=== PATIENT | male | born 1935 | race Two or more races ===

== ENCOUNTER 2018-05-16 17:42 | Inpatient (IN) | payer MEDICARE ==
[~2018-05-16] VITALS: Ht 177.8 cm; Wt 98.2 kg
--- NOTE | 2018-05-16 17:44 | NUR ---
ED Nurse Note: PT BIBA due to generalized weakness x 4 hours. Pt has a hx of COPD and triple A. A + O x4. Able to follow verbal commands. Skin warm to touch. Pt came into the ER w/ suprapubic catheter x 4 years. Pt's states that she noticed pt has not been urinating as much and that there has been purulent drainage coming from the suprapubic site.
[2018-05-16 17:49] VITALS: BP 129/60
[2018-05-16] MEDS ORDERED: PANTOPRAZOLE SO40 MG ORAL (17:50)
[2018-05-16] MEDS ORDERED: TRAMADOL HCL50 MG ORAL (17:50)
[2018-05-16] MEDS ORDERED: FOSAMAX70 MG ORAL (17:50)
[2018-05-16] MEDS ORDERED: MECLIZINE HCL12.5 MG ORAL (17:50)
[2018-05-16] MEDS ORDERED: OMEGA-3 + VITA200 ML PO (17:50)
[2018-05-16] MEDS ORDERED: ATORVASTATIN CA20 MG ORAL (17:50)
[2018-05-16] MEDS ORDERED: GABAPENTIN100 MG ORAL (17:50)
[2018-05-16] MEDS ORDERED: PROSCAR5 MG ORAL (17:50)
[2018-05-16] MEDS ORDERED: ASPIRIN-LOW81 MG ORAL (17:50)
[2018-05-16] MEDS ORDERED: FUROSEMIDE40 MG ORAL (17:50)
[2018-05-16] MEDS ORDERED: CALCIUM CITRAT1 EAC6 PO (17:50)
[2018-05-16] MEDS ORDERED: BENAZEPRIL HCL10 MG ORAL (17:50)
[2018-05-16] MEDS ORDERED: POLYETHYLENE GL17 GM ORAL (17:50)
[2018-05-16] MEDS ORDERED: VOLTAREN100 G1 TP (17:50)
--- NOTE | 2018-05-16 18:17 | NUR ---
ED Nurse Note: Pt went down to CT.
--- NOTE | 2018-05-16 18:24 | NUR ---
ED Nurse Note: Notified Dr. Tanner that pt has a suprapubic catheter. stated it is okay to take urine from that catheter instead of inserting a straight cath.
--- NOTE | 2018-05-16 18:27 | NUR ---
ED Nurse Note: Pt came back from CT
--- NOTE | 2018-05-16 18:32 | NUR ---
ED Nurse Note: Urine and flu swab has been collected and sent to lab. Awaiting results.
[2018-05-16 18:50] LABS: HEMATOCRIT 43.1 % (42.0-52.0); HEMOGLOBIN 14.8 G/DL (14.2-18.0); MEAN CORPUSCULAR VOLUME 92 FL (80-99); PLATELET COUNT 240 K/UL (150-450); RED BLOOD COUNT 4.71 M/UL (4.70-6.10); RED CELL DISTRIBUTION WIDTH 11.8 % (11.6-14.8); WHITE BLOOD COUNT 21.2 K/UL (4.8-10.8)
[2018-05-16 19:00] LABS: ANION GAP 12 mmol/L (5-15); BLOOD UREA NITROGEN 19 mg/dL (7-18); CARBON DIOXIDE 25 MMOL/L (21-32); CHLORIDE 100 MMOL/L (98-107); CREATININE 1.3 MG/DL (0.55-1.30); POTASSIUM 3.9 MMOL/L (3.5-5.1); SODIUM 137 MMOL/L (136-145)
[2018-05-16 19:13] LABS: APPEARANCE,URINE CLOUDY; BILIRUBIN, URINE NEGATIVE (NEGATIVE); COLOR,URINE PALE YELLOW; GLUCOSE, URINE (UA) NEGATIVE (NEGATIVE); KETONES,URINE NEGATIVE (NEGATIVE); LEUKOCYTE ESTERASE ,URINE 3+ (NEGATIVE); NITRITE,URINE NEGATIVE (NEGATIVE); PH,URINE 5 (4.5-8.0); PROTEIN,URINE 2+ (NEGATIVE); UROBILINOGEN,URINE NORMAL MG/DL (0.0-1.0)
--- NOTE | 2018-05-16 19:18 | NUR ---
HAND-OFF: Report given to LORA Sanchez.
[2018-05-16 19:21] LABS: ALANINE AMINOTRANSFERASE 21 U/L (12-78); ALBUMIN 4.3 G/DL (3.4-5.0); ALBUMIN/GLOBULIN RATIO 1.7 (1.0-2.7); ALKALINE PHOSPHATASE 99 U/L (46-116); ASPARTATE AMINO TRANSFERASE 11 U/L (15-37); BILIRUBIN,TOTAL 1.4 MG/DL (0.2-1.0); CREATINE KINASE 21 U/L (26-308)
[2018-05-16 19:25] LABS: BILIRUBIN,DIRECT 0.3 MG/DL (0.0-0.3)
--- NOTE | 2018-05-16 20:17 | NUR ---
ED Nurse Note: Received report. Pt in bed with family at bedside. telemetry nurse in place. Awaiting tele bed assignment for transfer. Will continue to monitor.
[2018-05-16 20:35] VITALS: BP 119/73
[2018-05-16 23:00] VITALS: BP 129/77
--- NOTE | 2018-05-16 23:00 | NUR ---
NURSE NOTES: Pt came to 2E unit via trudy w/o incident. Received report fromYolie Panchal, ED RN. Pt is sleeping in the bed w/o distress in RA Safety measures are applied with bed alarm on, bed in lowest position, and breaks are engaged. is at the bedside. Belonging checked and conveyor monitor is applied. Pt came with suprapubic cath, patent and draining. Pt is on abdomen binder. Skin tear with flap noted on L. heel, CN made aware and picture will be uploaded. Dr. serrano called for admission orders. Will carry out the orders. , Addendum: 05/17/18 at 0158 by DEVIN GIRON RN Dr. Serrano ordered 1/2 NS 100ml/H, NPO, Heparin 5000 unit sq q12HR, Levaquin 500mg, AC Insulin in sensitive scale per protocol, Full code status, everything else will be ordered in the morning per Dr. Serrano. Pharmacy adjusted Levaquin to 750mg Q48hr according to lab result. Currently, pt is sleeping w/o distress. Will follow plans of care.
--- NOTE | 2018-05-16 23:22 | Emergency Room Report ---
History of Present Illness General Chief Complaint: Generalized Weakness Source: Patient, Family Member Present Illness HPI 82-year-old male presents ED for evaluation. Brought in by daughter. Has been increasingly lethargic since this morning. Patient is unable to provide any additional history at this time. No reported chest pain or shortness of breath no reported fevers or chills. No slurred speech or facial droop. No other aggravating relieving factors. No other associated symptoms Allergies: Coded Allergies: PENICILLINS (Verified Allergy, Unknown, 05/16/18) Patient History Past Medical History: HTN, COPD, GERD Past Surgical History: none Pertinent Family History: none Social History: Denies: smoking, alcohol use, drug use Immunizations: UTD Reviewed Nursing Documentation: PMH: Agreed; PSxH: Agreed Nursing Documentation-PMH Past Medical History: No History, Except For Hx Cardiac Problems: Yes - AAA, High scholesterol Hx Hypertension: Yes Hx COPD: Yes Hx Gastrointestinal Problems: Yes - GERD, Chronic Constipation Review of Systems All Other Systems: limited Physical Exam Vital Signs Date Time Temp Pulse Resp B/P (MAP) Pulse Ox O2 Delivery O2 Flow Rate FiO2 05/16/18 17:34 98.2 94 18 114/65 100 Room Air 05/16/18 17:49 96 Sp02 EP Interpretation: reviewed, normal General Appearance: lethargic Head: normocephalic Eyes: bilateral eye normal inspection, bilateral eye PERRL ENT: normal ENT inspection Neck: normal inspection Respiratory: chest non-tender, lungs clear, normal breath sounds, speaking full sentences Cardiovascular #1: regular rate, rhythm, no edema Gastrointestinal: normal bowel sounds, non tender, soft, non-distended, no guarding, no rebound Rectal: deferred Genitourinary: no CVA tenderness Musculoskeletal: normal inspection Neurologic: other - lethargic Psychiatric: other - lethargic Skin: normal inspection Lymphatic: normal inspection Medical Decision Making Diagnostic Impression: Primary Impression: Episode of generalized weakness Additional Impressions: Sepsis Qualified Codes: A41.9 - Sepsis, unspecified organism UTI (urinary tract infection) Qualified Codes: N39.0 - Urinary tract infection, site not specified ER Course Hospital Course 82-year-old male presenting to ED with generalized weakness, lethargy Differential diagnoses include: Pneumonia, UTI, sepsis, dehydration, AL/ unstable angina Clinical course Patient placed on stretcher. On cardiac rehab nurse with stable vitals are ED course. After initial history and physical, I ordered labs, IV fluids, EKG, chest x-ray, blood cultures, UA, CT. Labs - electrolytes ok, marked leukocytosis, troponins negative, lactate > 3, UA grossly positive for UTI CXR - haziness in lower lung dumont CT head - no acute process EKG - some PVCS noted, no acute ischemic changes interpreted by me Abx given. Given 30 mL per KG fluid bolus. Vital stable. Case discussed with Dr Arredondo and they agreed to admit patient to their service for further care and support I feel this is a highly complex case requiring extensive working including EKG/ Rhythm strip, Xray/CT/US, Blood/urine lab work, repeat exams while in ED, and administration of strong opiates/narcotics for pain control, admission to hospital or close patient follow up. Diagnosis - UTI, sepsis, generalized weakness Patient admitted to telemetry in serious condition Labs Test 05/16/18 18:00 05/16/18 18:40 05/16/18 20:35 White Blood Count 21.2 K/UL (4.8-10.8) Red Blood Count 4.71 M/UL (4.70-6.10) Hemoglobin 14.8 G/DL (14.2-18.0) Hematocrit 43.1 % (42.0-52.0) Mean Corpuscular Volume 92 FL (80-99) Mean Corpuscular Hemoglobin 31.4 PG (27.0-31.0) Mean Corpuscular Hemoglobin Concent 34.3 G/DL (32.0-36.0) Red Cell Distribution Width 11.8 % (11.6-14.8) Platelet Count 240 K/UL (150-450) Mean Platelet Volume 6.1 FL (6.5-10.1) Neutrophils (%) (Auto) % (45.0-75.0) Lymphocytes (%) (Auto) % (20.0-45.0) Monocytes (%) (Auto) % (1.0-10.0) Eosinophils (%) (Auto) % (0.0-3.0) Basophils (%) (Auto) % (0.0-2.0) Differential Total Cells Counted 100 Neutrophils % (Manual) 80 % (45-75) Lymphocytes % (Manual) 7 % (20-45) Monocytes % (Manual) 5 % (1-10) Eosinophils % (Manual) 0 % (0-3) Basophils % (Manual) 0 % (0-2) Band Neutrophils 8 % (0-8) Platelet Estimate Adequate Platelet Morphology Normal Red Blood Cell Morphology Normal Sodium Level 137 MMOL/L (136-145) Potassium Level 3.9 MMOL/L (3.5-5.1) Chloride Level 100 MMOL/L (98-107) Carbon Dioxide Level 25 MMOL/L (21-32) Anion Gap 12 mmol/L (5-15) Blood Urea Nitrogen 19 mg/dL (7-18) Creatinine 1.3 MG/DL (0.55-1.30) Estimat Glomerular Filtration Rate mL/min (>60) Glucose Level 216 MG/DL (74-106) Lactic Acid Level 3.70 mmol/L (0.4-2.0) 2.60 mmol/L (0.66-2.22) Calcium Level 10.0 MG/DL (8.5-10.1) Total Bilirubin 1.4 MG/DL (0.2-1.0) Direct Bilirubin 0.3 MG/DL (0.0-0.3) Aspartate Amino Transf (AST/SGOT) 11 U/L (15-37) Alanine Aminotransferase (ALT/SGPT) 21 U/L (12-78) Alkaline Phosphatase 99 U/L (46-116) Total Creatine Kinase 21 U/L (26-308) Creatine Kinase MB 1.0 NG/ML (0.0-3.6) Creatine Kinase MB Relative Index 4.7 Troponin I 0.031 ng/mL (0.000-0.056) Pro-B-Type Natriuretic Peptide 339 pg/mL (0-125) Total Protein 6.8 G/DL (6.4-8.2) Albumin 4.3 G/DL (3.4-5.0) Globulin 2.5 g/dL Albumin/Globulin Ratio 1.7 (1.0-2.7) Urine Color Pale yellow Urine Appearance Cloudy Urine pH 5 (4.5-8.0) Urine Specific Easley 1.010 (1.005-1.035) Urine Protein 2+ (NEGATIVE) Urine Glucose (UA) Negative (NEGATIVE) Urine Ketones Negative (NEGATIVE) Urine Blood 5+ (NEGATIVE) Urine Nitrite Negative (NEGATIVE) Urine Bilirubin Negative (NEGATIVE) Urine Urobilinogen Normal MG/DL (0.0-1.0) Urine Leukocyte Esterase 3+ (NEGATIVE) Urine RBC 5-10 /HPF (0 - 0) Urine WBC Tntc /HPF (0 - 0) Urine Squamous Epithelial Cells None /LPF (NONE/OCC) Urine Amorphous Sediment Moderate /LPF (NONE) Urine Bacteria Many /HPF (NONE) Urine Yeast Moderate /HPF (NONE) EKG Diagnostic Results Rate: normal Rhythm: NSR ST Segments: no acute changes ASA given to the pt in ED: No Rhythm Strip Diag. Results EP Interpretation: yes Rhythm: NSR, no ectopy, other - PVCs Chest X-Ray Diagnostic Results Chest X-Ray Diagnostic Results : Chest X-Ray Ordered: Yes # of Views/Limited/Complete: 1 View Indication: Other EP Interpretation: Yes Interpretation: no pneumothorax, other - haziness lower lung dumont Impression: Other - ?PNA Electronically Signed by: Electronically signed by Manan Tanner MD Last Vital Signs Date Time Temp Pulse Resp B/P (MAP) Pulse Ox O2 Delivery O2 Flow Rate FiO2 05/16/18 22:24 98.0 78 18 123/63 96 Room Air 05/16/18 17:49 96 Status: improved Disposition: ADMITTED INPATIENT Condition: Serious Referrals: [facility],REFERR[facility] (PCP) Manan Tanner MD May 16, 2018 23:22
[2018-05-17 04:00] VITALS: BP 140/76
[2018-05-17] MEDS: NovoLOG Insulin Flexpen SUBQ SCH ×4 (06:30→21:43)
--- NOTE | 2018-05-17 07:30 | NUR ---
NURSE NOTES: AND-OFF: Report given to LORA Sánchez. Stable condition.
--- NOTE | 2018-05-17 07:42 | NUR ---
NURSE NOTES: Received bedside report from Marti PAULINO. Pt. in bed, asleep but arousable. No sign of distress. No grimacing noted. IV at left AC #20g. in placed running 1/2 NS at 100cc/hr. Supra pubic in placed patent/intact draining yellow colored urine. Bed in low position, locked. Call light within reach. Will cont. to monitor.
[2018-05-17 08:00] VITALS: BP 127/66
--- NOTE | 2018-05-17 08:45 | Diagnostic Imaging Report ---
Indication: Altered mental status Technique: spiral acquisitions obtained through the brain. Angled axial and coronal 5 x 5 mm slices were reconstructed. No IV contrast utilized. Radiation dose was minimized using automated exposure control Total dose length product 1513.27 mGycm. CTDIvol(s) 70.38 mGy Comparison: none FINDINGS: No acute hemorrhage or edema. No mass effect or midline shift. There is age-related enlargement of the ventricles and extra axial CSF spaces. There is periventricular deep white matter ischemic change. Normal kendrick-white differentiation. Visualized orbits are unremarkable. Visualized sinuses are unremarkable. Intact calvarium. IMPRESSION: Chronic and age-related changes. Negative for acute intracranial bleed or mass effect This agrees with the preliminary interpretation provided overnight by Dr. Paulino The CT scanner at [facility] is accredited by the [employer] and the scans are performed using protocols designed to limit radiation exposure to as low as reasonably achievable to attain images of sufficient resolution adequate for diagnostic evaluation
--- NOTE | 2018-05-17 08:46 | Diagnostic Imaging Report ---
Indication: Chest pain Technique: One view of the chest Comparison: none Findings: Suboptimal inspiration. There is some atelectasis at the right lung base. The lungs and pleural spaces are otherwise clear. Heart is upper limits of normal in size. The aorta is tortuous and ectatic Impression: No acute process
[2018-05-17] MEDS: Vitamin A&D Oint 2oz Tube TOPIC SCH ×2 (09:00→21:42)
[2018-05-17] MEDS: Heparin 5000 units/ml inj SUBQ SCH ×2 (09:07→21:43)
--- NOTE | 2018-05-17 10:53 | NUR ---
P.T Note: P.T evaluation completed. Tx initiated. Please refer to P.T evaluation for current functional status Pt is alert, oriented to self, place, person and situation. Pt is pleasant and cooperative. No c/o major pain nor discomfort. Pt is limited by generalized weakness and deconditioned state. Pt currently require MIN A x 1 to roll/turn , scoot and MOD A X 1 for supine to sit. Pt able to sit unsupported. Pt was able to initiate sit to stand with MAX A X 1 however unable to fully stand. Pt. should benefit Addendum: 05/17/18 at 1103 by KRISTA PINTO PT Continuation of P.T Note: P.T evaluation completed. Tx initiated. Please refer to P.T evaluation for current functional status Pt is alert, oriented to self, place, person and situation. Pt is pleasant and cooperative. No c/o major pain nor discomfort. Pt is limited by generalized weakness and deconditioned state. Pt currently require MIN A x 1 to roll/turn , scoot and MOD A X 1 for supine to sit. Pt able to sit unsupported. Pt was able to initiate sit to stand with MAX A X 1 however unable to fully stand. Pt. should benefit from skilled P.T service to increase his strength, endurance and balance to increase safety and functional mobility independence. Recommend home P.T at [place] to maximize mobility independence and safety at home.
--- NOTE | 2018-05-17 11:42 | NUR ---
ST NOTE: BEDSIDE SWALLOW EVAL RECEIVED BEDSIDE SWALLOW EVAL ORDER CHART REVIEWED PRIOR THE EVALUATION. PT IS A 83-YEAR-OLD MALE WHO WAS ADMITTED DUE TO WEAKNESS AND AMS. DYSPHAGIA RISK FACTORS: AMS, WEAKNESS, COPD, GERD, HTN, DIALYSIS. PER CXR: SOME ATELECTASIS AT THE R LUNG BASE, OTHERWISE NO ACUTE PROCESS PER CT HEAD: NEGATIVE FOR ACUTE INTRACRANIAL BLEED OR MASS EFFECT. PLOF: PT LIVES AT HOME WITH . CURRENT STATUS: PT SEEN AT BEDSIDE IN AM. ALERT, COOPERATIVE, FOLLOWS SIMPLE DIRECTIONS, ORIENTED X 3.(KNOW THE YEAR). GIVEN PO TRIALS: THIN(CUP-SELF), PUREE(TSP) AND CRACKER. INITIAL IMPRESSION: PT HAS UPPER DENTURE, MISSING SOME MOLAR TEETH. GOOD MASTICATION TIME, MIN INCREASED ORAL TRANSIT TIME AND OROPHARYNGEAL TRANSIT TIME, FUNCTIONAL LARYNGEAL ELEVATION, NO OVERT S/S OF ASPIRATION. OVERALL, PT'S SWALLOWING SEEMS FUNCTIONAL. RECOMMENDATIONS: 1. DUE TO PT'S OVERALL WEAKNESS, SLOWLY INITIATE MECH SOFT(CHOPPED) WITH THIN LIQUIDS. 2. ASPIRATION/REFLUX PRECAUTIONS WITH SUPERVISION. 3. SKILLED ST SERVICE TO FOLLOW UP 1-2 TIMES. 4. ADVANCED DIET TOLERATED. D/W PT, RN, JANN POSTED ASPIRATION/REFLUX PRECAUTIONS SIGN.
[2018-05-17 12:00] VITALS: BP 138/71
--- NOTE | 2018-05-17 13:31 | NUR ---
*-* INSURANCE *-* CLINICALS HAVE BEEN FAXED TO: [email or web address] P:[phone] F:[phone]
--- NOTE | 2018-05-17 15:45 | History and Physical Report ---
DATE OF ADMISSION: 05/16/2018 CHIEF COMPLAINT: Weakness. HISTORY OF PRESENT ILLNESS: This 83-year-old man was brought in by the daughter from home because of lethargy since yesterday morning. Late last night, he was evaluated in the emergency department. He had no history of fever or chills, but now he is more alert and reports that he had some dysuria. He was evaluated and found to have urinary tract infection and sepsis. White count was elevated. His blood pressure was stable. He was admitted to medical floor for treatment. Fluids and antibiotics were given after cultures were obtained. PAST MEDICAL HISTORY: Includes hypertension, COPD, acid reflux, high cholesterol, abdominal aneurysm, constipation. MEDICATIONS: At home include baby aspirin, Lipitor, benazepril, vitamins, Voltaren gel, Fosamax, Lasix, gabapentin, meclizine, pantoprazole, and tramadol. ALLERGIES: Penicillin. REVIEW OF SYSTEMS: Otherwise unremarkable. SOCIAL HISTORY: He does not drink or smoke. PHYSICAL EXAMINATION: GENERAL: Stable. He is alert and responds appropriately. Now, he is obese. HEENT: Head is normocephalic. NECK: No jugular venous distention. CHEST: Clear. CARDIAC: Rhythm is regular. ABDOMEN: Soft and nontender. There is no liver or spleen enlargement. BACK: Shows left CVA tenderness. EXTREMITIES: Have no clubbing, cyanosis, or edema. GENITOURINARY: Thapa catheter is in place. LABORATORY AND DIAGNOSTIC DATA: Chest x-ray is negative. Urine shows many white cells. Lactate is elevated. CT head negative. Troponins negative. White count is 21,200. BUN 19, creatinine 1.3, blood sugar is elevated at 216. IMPRESSION: 1. Sepsis. 2. Urinary tract infection with probable left pyelonephritis. 3. Hypertension. 4. Hyperglycemia with obesity, possible type 2 diabetes. 5. Hyperlipidemia. 6. Chronic obstructive pulmonary disease. PLAN: The patient will be treated with antibiotics and fluids. We will have physical therapy evaluation. An ultrasound of the kidneys was ordered. We will monitor blood sugar and check A1c. Nayan Arredondo M.D. DR: Breanne JOB#: [id number] CC: Nayan Arredondo M.D.; Fax#: [phone]
[2018-05-17 16:00] VITALS: BP 127/66
--- NOTE | 2018-05-17 18:41 | NUR ---
CASE MANAGEMENT: REVIEW 83/M BIBA FROM HOME CC: GENERALIZED WEAKNESS SI: AMS T 98.4 HR 59 RR 20 BP 127/66 SAT 97% ROOM AIR WBC 21.2 GLUCOSE 216 LACTIC ACID 3.70 IS: NS IVF BOLUS X1 LEVOFLOXACIN IV X1 PATIENT ADMITTED TO TELEMETRY UNIT 05/16/2018 DCP: PATIENT IS FROM HOME
[2018-05-17 20:00] VITALS: BP 139/71
--- NOTE | 2018-05-17 20:14 | NUR ---
HAND-OFF: Report given to Beverly PAULINO. Pt. remain stable.
--- NOTE | 2018-05-17 20:19 | NUR ---
NURSE NOTES: Received report from LORA Sánchez. Patient is awake lying semi-gallegos's; resting comfortably. No signs of acute distress noted; denies pain at this time. and son at bedside. AOx3; able to make needs known. Checked IV site, lines, and IV rate; patent and running. No erythema, bleeding, or infiltration noted. Suprapubic catheter draining well to gravity. Bed at lowest position, brakes on, siderails up x3. Call light within reach. Will continue to monitor.
[2018-05-18] VITALS: BP 153/92
[2018-05-18 04:00] VITALS: BP 153/82
[2018-05-18] MEDS: NovoLOG Insulin Flexpen SUBQ SCH ×4 (07:08→20:43)
--- NOTE | 2018-05-18 07:30 | NUR ---
HAND-OFF: Report given to LORA Sánchez. Patient is awake lying semi-gallegos's; resting comfortably. In stable condition.
--- NOTE | 2018-05-18 07:35 | NUR ---
NURSE NOTES: Received bedside report from Beverly PAULINO. Pt. in bed, awake, a/o x 3-4. No sign of distress. Denies pain at present. IV at left AC #20g. in placed running 1/2 NS at 100cc/hr. Supra pubic in placed patent/intact draining yellow colored urine. Pleasant and cooperative. Bed in low position, locked. Call light within reach. Will cont. to monitor.
[2018-05-18 08:00] VITALS: BP 142/64
[2018-05-18 08:26] LABS: BASOPHILS % (AUTO) 0.7 % (0.0-2.0); EOSINOPHILS % (AUTO) 2.8 % (0.0-3.0); HEMATOCRIT 39.9 % (42.0-52.0); LYMPHOCYTES % (AUTO) 17.3 % (20.0-45.0); MEAN CORPUSCULAR VOLUME 90 FL (80-99); MONOCYTES % (AUTO) 5.4 % (1.0-10.0); NEUTROPHILS % (AUTO) 73.8 % (45.0-75.0); PLATELET COUNT 186 K/UL (150-450); RED BLOOD COUNT 4.42 M/UL (4.70-6.10); RED CELL DISTRIBUTION WIDTH 11.8 % (11.6-14.8)
[2018-05-18 09:13] LABS: ALANINE AMINOTRANSFERASE 19 U/L (12-78); ALBUMIN 3.6 G/DL (3.4-5.0); ALBUMIN/GLOBULIN RATIO 1.4 (1.0-2.7); ALKALINE PHOSPHATASE 90 U/L (46-116); ANION GAP 12 mmol/L (5-15); ASPARTATE AMINO TRANSFERASE 14 U/L (15-37); BILIRUBIN,TOTAL 1.4 MG/DL (0.2-1.0); BLOOD UREA NITROGEN 14 mg/dL (7-18); CARBON DIOXIDE 25 MMOL/L (21-32); CHLORIDE 107 MMOL/L (98-107); CREATININE 1.1 MG/DL (0.55-1.30); POTASSIUM 3.8 MMOL/L (3.5-5.1); SODIUM 144 MMOL/L (136-145)
[2018-05-18] MEDS: Vitamin A&D Oint 2oz Tube TOPIC SCH ×2 (09:16→20:32)
[2018-05-18] MEDS: Heparin 5000 units/ml inj SUBQ SCH ×2 (09:18→20:33)
[2018-05-18 09:25] LABS: BILIRUBIN,DIRECT 0.3 MG/DL (0.0-0.3)
--- NOTE | 2018-05-18 10:53 | General Progress Note ---
Assessment/Plan Assessment/Plan 1. Sepsis. 2. Urinary tract infection with probable left pyelonephritis. 3. Hypertension. 4. Hyperglycemia with obesity, possible type 2 diabetes. 5. Hyperlipidemia. 6. Chronic obstructive pulmonary disease. No flank pain today. Ultrasound is pending. White count is down to normal and no fever Very weak with physical therapy Possible discharge home tomorrow with home health Subjective Constitutional: Reports: no symptoms Allergies: Coded Allergies: PENICILLINS (Verified Allergy, Unknown, 05/16/18) Objective Last 24 Hour Vital Signs Date Time Temp Pulse Resp B/P (MAP) Pulse Ox O2 Delivery O2 Flow Rate FiO2 05/18/18 08:31 Room Air 05/18/18 08:00 98.2 65 20 142/64 (90) 96 05/18/18 07:52 64 05/18/18 04:00 60 05/18/18 04:00 97.9 69 20 153/82 (105) 98 05/18/18 00:00 97.5 60 20 153/92 (112) 95 05/18/18 00:00 58 05/17/18 21:00 Room Air 05/17/18 20:00 64 05/17/18 20:00 98.1 64 20 139/71 (93) 95 05/17/18 16:01 62 05/17/18 16:00 98.4 66 20 127/66 (86) 97 05/17/18 12:00 98.1 60 20 138/71 (93) 96 05/17/18 11:36 59 Intake and Output 05/17/18 05/18/18 19:00 07:00 Intake Total 580 ml 1130 ml Output Total 1150 ml 2000 ml Balance -570 ml -870 ml Intake Oral 480 ml IV Total 100 ml 1130 ml Output Urine Total 1150 ml 2000 ml # Bowel Movements 2 Laboratory Tests 05/18/18 07:55: White Blood Count 9.0, Red Blood Count 4.42L, Hemoglobin 14.0L, Hematocrit 39.9L , Mean Corpuscular Volume 90, Mean Corpuscular Hemoglobin 31.6H, Mean Corpuscular Hemoglobin Concent 35.0, Red Cell Distribution Width 11.8, Platelet Count 186, Mean Platelet Volume 6.3L, Neutrophils (%) (Auto) 73.8, Lymphocytes ( %) (Auto) 17.3L, Monocytes (%) (Auto) 5.4, Eosinophils (%) (Auto) 2.8, Basophils (%) (Auto) 0.7, Sodium Level 144, Potassium Level 3.8, Chloride Level 107, Carbon Dioxide Level 25, Anion Gap 12, Blood Urea Nitrogen 14, Creatinine 1.1, Estimat Glomerular Filtration Rate , Glucose Level 139H, Hemoglobin A1c 6.4H, Calcium Level 9.0, Total Bilirubin 1.4H, Direct Bilirubin 0.3, Aspartate Amino Transf (AST/SGOT) 14L, Alanine Aminotransferase (ALT/SGPT) 19, Alkaline Phosphatase 90, Total Protein 6.2L, Albumin 3.6, Globulin 2.6, Albumin/Globulin Ratio 1.4 Height (Feet): 5 Height (Inches): 10.00 Weight (Pounds): 216 General Appearance: no apparent distress Cardiovascular: normal rate Respiratory/Chest: lungs clear Abdomen: non tender Edema: no edema noted Generalized Nayan Arredondo MD May 18, 2018 10:53
--- NOTE | 2018-05-18 11:51 | Diagnostic Imaging Report ---
Indication:Elevated Bun and Creatinine. Technique: Grayscale and duplex Doppler imaging of the kidneys performed. Comparison: None Findings: There is limited visualization of the kidneys. Kidney may be slightly echogenic. There are multiple cysts of varying size within both kidneys. The kidneys measure about 13 cm in length bilaterally. Bladder is unremarkable. IMPRESSION: Multiple renal cysts. Suspected medical renal disease. Limited study
[2018-05-18 12:00] VITALS: BP 158/79
--- NOTE | 2018-05-18 13:54 | NUR ---
*-* INSURANCE *-* H&P HAVE BEEN FAXED TO: [facility] [employer] P:[phone] F:[phone]
[2018-05-18 16:00] VITALS: BP 141/74
--- NOTE | 2018-05-18 18:42 | Cardiology Report ---
APPROVED REPORT EKG Measurement Heart [id number] SD 180P0 [id number] Sinus rhythm with premature supraventricular complexes Left axis deviation Left bundle branch block Abnormal ECG
[2018-05-18 20:00] VITALS: BP_SYST 146; BP_SYST 155; BP_DIAS 63; BP_DIAS 85
--- NOTE | 2018-05-18 20:01 | NUR ---
HAND-OFF: Report given to Emilio PAULINO. Pt. remain stable.
--- NOTE | 2018-05-18 20:02 | NUR ---
NURSE NOTES: Received report from LORA Sánchez. Pt is awake and resting in bed. In no acute distress. Bed in lowest position, call light within reach. Family is at bedside. Will continue plan of care.
[2018-05-19] VITALS: BP 139/67
[2018-05-19 04:00] VITALS: BP 156/84
[2018-05-19] MEDS: NovoLOG Insulin Flexpen SUBQ SCH ×4 (06:30→21:05)
[2018-05-19 07:13] LABS: BASOPHILS % (AUTO) 0.9 % (0.0-2.0); EOSINOPHILS % (AUTO) 3.1 % (0.0-3.0); HEMATOCRIT 38.1 % (42.0-52.0); HEMOGLOBIN 13.2 G/DL (14.2-18.0); LYMPHOCYTES % (AUTO) 23.1 % (20.0-45.0); MEAN CORPUSCULAR VOLUME 90 FL (80-99); PLATELET COUNT 175 K/UL (150-450); RED BLOOD COUNT 4.24 M/UL (4.70-6.10); RED CELL DISTRIBUTION WIDTH 11.4 % (11.6-14.8); WHITE BLOOD COUNT 6.7 K/UL (4.8-10.8)
--- NOTE | 2018-05-19 07:15 | NUR ---
HAND-OFF: Report given to LORA Dorantes.
--- NOTE | 2018-05-19 07:39 | NUR ---
Received report from Emilio PAULINO. Pt. in bed, awake, a/o x 3. No sign of distress. Denies pain at present. IV at left AC #20g is intact and patent running 1/2 NS at 100cc/hr. Supra pubic in placed patent/intact draining yellow colored urine by gravity. Bed in low position, locked. Call light and frequent used objects are within reach. Will cont. to monitor.
[2018-05-19 07:50] LABS: ALANINE AMINOTRANSFERASE 22 U/L (12-78); ALBUMIN 3.4 G/DL (3.4-5.0); ALBUMIN/GLOBULIN RATIO 1.4 (1.0-2.7); ALKALINE PHOSPHATASE 80 U/L (46-116); ANION GAP 8 mmol/L (5-15); ASPARTATE AMINO TRANSFERASE 17 U/L (15-37); BILIRUBIN,TOTAL 1.2 MG/DL (0.2-1.0); BLOOD UREA NITROGEN 17 mg/dL (7-18); CARBON DIOXIDE 27 MMOL/L (21-32); CHLORIDE 108 MMOL/L (98-107); CREATININE 1.1 MG/DL (0.55-1.30); POTASSIUM 3.9 MMOL/L (3.5-5.1); SODIUM 143 MMOL/L (136-145)
[2018-05-19 07:51] LABS: BILIRUBIN,DIRECT 0.3 MG/DL (0.0-0.3)
[2018-05-19] MEDS: Vitamin A&D Oint 2oz Tube TOPIC SCH ×2 (08:04→21:03)
[2018-05-19] MEDS: Heparin 5000 units/ml inj SUBQ SCH ×2 (08:06→21:07)
[2018-05-19 09:00] VITALS: BP 170/84
--- NOTE | 2018-05-19 10:44 | NUR ---
PATIENT BP 170/85. DR. MORSE CONSULTED BY DR.SOFFER DR. MORSE NOTIFIED AND WAITING FOR CALL BACK
[2018-05-19 12:00] VITALS: BP 151/77
[2018-05-19] MEDS ORDERED: HydrALAZINE 10mg Tab ORAL PRN (13:00)
[2018-05-19] MEDS ORDERED: Lisinopril 20mg tab ORAL SCH (14:00)
--- NOTE | 2018-05-19 14:14 | NUR ---
LISINOPRIL 40 MG ADMIN ORDERED BY WILL CONTINUE TO MONITOR
--- NOTE | 2018-05-19 14:33 | General Progress Note ---
Assessment/Plan Assessment/Plan 1. Sepsis. 2. Urinary tract infection with probable left pyelonephritis. 3. Hypertension. 4. Hyperglycemia with obesity, possible type 2 diabetes. 5. Hyperlipidemia. 6. Chronic obstructive pulmonary disease. Renal ultrasound negative Blood pressure is elevated Cardiology called and medication ordered Discontinue IV fluids Possible discharge home tomorrow with home health Discussed with at bedside and son by phone Subjective Constitutional: Reports: no symptoms Allergies: Coded Allergies: PENICILLINS (Verified Allergy, Unknown, 05/16/18) Objective Last 24 Hour Vital Signs Date Time Temp Pulse Resp B/P (MAP) Pulse Ox O2 Delivery O2 Flow Rate FiO2 05/19/18 13:39 151/77 05/19/18 12:00 97.8 64 20 151/77 (101) 95 05/19/18 12:00 66 05/19/18 09:00 Room Air 05/19/18 09:00 98.1 64 19 170/84 (112) 95 05/19/18 08:00 74 05/19/18 04:00 98.1 57 18 156/84 (108) 95 05/19/18 04:00 57 05/19/18 00:00 97.8 61 18 139/67 (91) 95 05/19/18 00:00 61 05/18/18 21:00 Room Air 05/18/18 20:00 98.0 67 17 146/63 (90) 95 05/18/18 20:00 67 05/18/18 16:00 97.3 61 20 141/74 (96) 97 05/18/18 15:14 62 Intake and Output 05/18/18 05/19/18 19:00 07:00 Intake Total 240 ml Output Total 1000 ml 3000 ml Balance -1000 ml -2760 ml Intake Oral 240 ml Output Urine Total 1000 ml 3000 ml # Voids 3 Laboratory Tests 05/19/18 06:35: White Blood Count 6.7, Red Blood Count 4.24L, Hemoglobin 13.2L, Hematocrit 38.1L , Mean Corpuscular Volume 90, Mean Corpuscular Hemoglobin 31.1H, Mean Corpuscular Hemoglobin Concent 34.6, Red Cell Distribution Width 11.4L, Platelet Count 175, Mean Platelet Volume 6.1L, Neutrophils (%) (Auto) 67.0, Lymphocytes (%) (Auto) 23.1, Monocytes (%) (Auto) 6.0, Eosinophils (%) (Auto) 3.1H, Basophils (%) (Auto) 0.9, Sodium Level 143, Potassium Level 3.9, Chloride Level 108H, Carbon Dioxide Level 27, Anion Gap 8, Blood Urea Nitrogen 17, Creatinine 1.1, Estimat Glomerular Filtration Rate , Glucose Level 117H, Calcium Level 9.0, Total Bilirubin 1.2H, Direct Bilirubin 0.3, Aspartate Amino Transf (AST/SGOT) 17, Alanine Aminotransferase (ALT/SGPT) 22, Alkaline Phosphatase 80, Total Protein 5.8L, Albumin 3.4, Globulin 2.4, Albumin/Globulin Ratio 1.4 Height (Feet): 5 Height (Inches): 10.00 Weight (Pounds): 216 General Appearance: no apparent distress Neck: supple Cardiovascular: normal rate Respiratory/Chest: lungs clear Nayan Arredondo MD May 19, 2018 14:33
--- NOTE | 2018-05-19 15:20 | NUR ---
RD ASSESSMENT & RECOMMENDATIONS SEE CARE ACTIVITY FOR COMPLETE ASSESSMENT DAILY ESTIMATED NEEDS: Needs based on COPD, CARDIAC/ 81kg abw 25-30 kcals/kg 7517-4993 total kcals 1-1.2 g protein/kg 81-97 g total protein 25-30 mL/kg total fluid mLs NUTRITION DIAGNOSIS: Altered nutrition related lab values R/T diabetes? as evidenced by A1C=6.4, elev POC (112-155). CURRENT DIET:REGULAR, mech soft chopped PO DIET RECOMMENDATIONS: CCHO MED, LOW NA/ texture as tolerated ADDITIONAL RECOMMENDATIONS: * Calibrated bedscale wt for accurate CBW * Advance texture as tolerated per SPICE MIXER * Monitor BGs
[2018-05-19 16:00] VITALS: BP 149/73
--- NOTE | 2018-05-19 19:06 | NUR ---
HAND-OFF: Report given to Armando PAULINO.
--- NOTE | 2018-05-19 19:15 | NUR ---
NURSE NOTES: Received report from LORA Dorantes. Pt is awake and resting in bed. In no acute distress. Bed in lowest position, call light within reach. Will continue plan of care.
[2018-05-19 20:00] VITALS: BP 127/75
[2018-05-20] VITALS: BP 130/72
[2018-05-20 04:00] VITALS: BP 138/76
[2018-05-20] MEDS: NovoLOG Insulin Flexpen SUBQ SCH ×2 (06:37→11:30)
[2018-05-20 06:59] LABS: ALANINE AMINOTRANSFERASE 28 U/L (12-78); ALBUMIN 3.6 G/DL (3.4-5.0); ALBUMIN/GLOBULIN RATIO 1.5 (1.0-2.7); ALKALINE PHOSPHATASE 83 U/L (46-116); ANION GAP 11 mmol/L (5-15); ASPARTATE AMINO TRANSFERASE 18 U/L (15-37); BILIRUBIN,TOTAL 1.4 MG/DL (0.2-1.0); BLOOD UREA NITROGEN 17 mg/dL (7-18); CALCIUM 9.4 MG/DL (8.5-10.1); CARBON DIOXIDE 25 MMOL/L (21-32); CHLORIDE 107 MMOL/L (98-107); POTASSIUM 3.8 MMOL/L (3.5-5.1); SODIUM 143 MMOL/L (136-145)
[2018-05-20 07:05] LABS: BASOPHILS % (AUTO) 0.8 % (0.0-2.0); EOSINOPHILS % (AUTO) 3.4 % (0.0-3.0); HEMOGLOBIN 14.1 G/DL (14.2-18.0); LYMPHOCYTES % (AUTO) 26.7 % (20.0-45.0); MEAN CORPUSCULAR VOLUME 90 FL (80-99); NEUTROPHILS % (AUTO) 63.1 % (45.0-75.0); PLATELET COUNT 194 K/UL (150-450); RED BLOOD COUNT 4.44 M/UL (4.70-6.10); RED CELL DISTRIBUTION WIDTH 11.6 % (11.6-14.8); WHITE BLOOD COUNT 7.1 K/UL (4.8-10.8)
[2018-05-20 07:20] LABS: BILIRUBIN,DIRECT 0.3 MG/DL (0.0-0.3)
--- NOTE | 2018-05-20 07:20 | NUR ---
HAND-OFF: Report given to LORA Johnston.
--- NOTE | 2018-05-20 07:21 | NUR ---
NURSE NOTES: Received report from LORA Jhaveri. Patient is in stable condition. No acute distress/SOB noted. Will continue plan of care.
[2018-05-20 08:00] VITALS: BP 131/62
[2018-05-20] MEDS ORDERED: Lisinopril 20mg tab ORAL SCH (09:00)
[2018-05-20] MEDS: Heparin 5000 units/ml inj SUBQ SCH (09:06)
[2018-05-20] MEDS: Vitamin A&D Oint 2oz Tube TOPIC SCH (09:06)
[2018-05-20] MEDS ORDERED: LEVAQUIN500 MG ORAL (09:18)
[2018-05-20] MEDS ORDERED: LISINOPRIL20 MG ORAL (09:18)
[2018-05-20] MEDS ORDERED: Levofloxacin 500mg tab ORAL SCH (09:30)
--- NOTE | 2018-05-20 10:21 | NUR ---
NURSE NOTES: left a message to mirza (son) regarding patients discharge. awaitng callback and pick and shovel man time as of this time.
--- NOTE | 2018-05-20 10:46 | NUR ---
Social Service Note MAGDALENO left a message for patient's son Dipesh Knott [phone] regarding impending dc home. SW requesting verification of home address. MAGDALENO spoke with Vicky [facility] of insurance. Per [facility] plan will arrange for home health and will contact patient/family for start of service. MAGDALENO faxed referral Vicky at [phone]. MAGDALENO discussed with primary nurse. Will continue to monitor.
--- NOTE | 2018-05-20 11:20 | NUR ---
ST NOTE: SWALLOW STATUS AND D/C SUMMARY: CHART REVIEWED DISCUSSED WITH RNERIK RE:PT'S CONDITIONS. PT WAS ABLE TO TOLERATE CURRENT DIET(SOFT-CHOPPED WITH THIN LIQUIDS WITHOUT OVERT S/S OF ASPIRATION. PER RN, PT WILL BE D/C HOME TODAY. D/C SUMMARY: PT MET PO INTAKE GOALS. NURSING STAFF MET ASPIRATION PRECAUTIONS GOALS. D/C FROM SKILLED ST SERVICE.
--- NOTE | 2018-05-20 11:45 | Progress Note ---
DATE: 05/20/2018 CARDIOLOGY PROGRESS NOTE SUBJECTIVE: The patient feels better. No chest pain. No shortness of breath. Blood pressure control has been achieved. OBJECTIVE: VITAL SIGNS: Blood pressure 151/77, pulse 64, respirations 20 earlier. Now 127/68. NECK: Supple. LUNGS: Clear. CARDIAC: Regular. Normal S1 and S2. ABDOMEN: Soft. EXTREMITIES: No edema. IMPRESSION: 1. UTI with sepsis, improved. 2. Hypertensive heart disease, improved on MALDONADO inhibitor. 3. Diabetes mellitus and hyperlipidemia, stable. 4. COPD, stable. PLAN: Plan of care noted. We will follow as needed. Bj Nicole M.D. DR: SHIRA JOB#: [id number] CC:
[2018-05-20 12:00] VITALS: BP 128/72
--- NOTE | 2018-05-20 12:13 | NUR ---
NURSE NOTES: Discharge instruction given and patient verbalized understanding. Inventory check done. Removed playground monitor. No acute distress/SOB noted. Patient denies any pain/discomfort. Awaiting for son to pick-up. Will continue plan of care.
--- NOTE | 2018-05-20 12:40 | NUR ---
NURSE NOTES: Son and came and requested for ambulance. Dr. Arredondo made aware. New order carried out.
--- NOTE | 2018-05-20 12:45 | NUR ---
NURSE NOTES: Discharge instruction given to son and again. They verbalized understanding. Awaiting for ambulance.
--- NOTE | 2018-05-20 13:35 | NUR ---
NURSE NOTES: Patient left with stable condition via ambulance with 2 hansard reporter. All belongings given to .
--- NOTE | 2018-05-20 19:55 | Discharge Summary ---
Discharge Summary Discharge Summary _ DATE OF ADMISSION: 05/16/2018 DATE OF DISCHARGE: 05/20/2018 DISCHARGED BY: Dr. Arredondo REASON FOR ADMISSION: 83 years old male with past medical history of hypertension, COPD, high cholesterol, acid reflux, abdominal aneurysm, constipation , presented from home for evaluation due to lethargy for 1 day. He was more alert in the emergency department but reported to have some dysuria. Laboratory workup revealed significant leukocytosis with WBC 21.2, stable hemoglobin hematocrit. Lactic acid 2.6. Glucose [address] of the head revealed chronic age-related changes, but was negative for acute intracranial bleeding or mass-effect. Chest x-ray revealed no acute cardiopulmonary pathology Patient was admitted for further management/ CONSULTANTS: brain picker HOSPITAL COURSE: Patient admitted started on IV fluids and broad-spectrum antibiotics. Ultrasound of the kidneys revealed multiple renal cysts. Suspected medical renal disease. Blood cultures were negative. Influenza screen test was negative. Urine culture revealed Stenotrophomonas. Antibiotic regimen was optimized based on sensitivity. Blood pressure was elevated. IV fluids discontinued Cardiology consult requested. Blood pressure was managed with MALDONADO inhibitor. Blood pressure stabilized. DVT prophylaxis provided. Hemoglobin A1c 6.4. Blood sugar was managed with sliding scale of insulin on as needed basis. Respiratory status remained stable. Pulse oximetry stable on room air. Patient clinically stabilized. Leukocytosis resolved, no fever. Mental status at baseline. Patient was stable for discharge home with home health services to follow FINAL DIAGNOSES: Sepsis Urinary tract infection with Stenotrophomonas with probable pyelonephritis Hypertensive heart disease Type 2 diabetes Hyperlipidemia Chronic obstructive pulmonary disease Obesity DISCHARGE MEDICATIONS: See Medication Reconciliation list. DISCHARGE INSTRUCTIONS: Patient was discharged home with home health services. Follow up with primary care provider in one week. I have been assigned to dictate discharge summary for this account. I was not involved in the patient's management. Sulma Wade NP May 20, 2018 19:55
== END 2018-05-20 13:35 | disposition home health service (06) | DRG 872 ==
LOC: EDBD 17:42 → EMR 18:00 → EDBEDREQ 18:11 → EDBEDREQSVC 19:27 → 2E 19:58 → EDBEDREQ 21:12 → 2E 05-17 05:53
DX: A41.9 Sepsis, unspecified organism (principal); N39.0 Urinary tract infection, site not specified; N12 Tubulo-interstitial nephritis, not specified as acute or chronic; E78.5 Hyperlipidemia, unspecified; J44.9 Chronic obstructive pulmonary disease, unspecified; E66.9 Obesity, unspecified; B96.89 Other specified bacterial agents as the cause of diseases classified elsewhere; I11.9 Hypertensive heart disease without heart failure; E11.65 Type 2 diabetes mellitus with hyperglycemia
CPT/HCPCS: 36415; 70450; 71045; 76770; 80053; 81003; 82248; 82550; 82553; 82962; 83036; 83605; 83880; 84484; 85007; 85025; 86710; 87040; 87086; 87181; 93005; 96361; 96365; 99285; J1815